=== PATIENT | male | born 1995 | race Caucasian/White ===

== ENCOUNTER 2017-03-18 10:35 | Emergency (ER) | payer SELFPAY ==
[2017-03-18 11:04] LABS: APPEARANCE HAZY (CLEAR); BILIRUBIN NEGATIVE (NEGATIVE); COLOR YELLOW (YELLOW); GLUCOSE NEGATIVE (NEGATIVE); KETONE NEGATIVE (NEGATIVE); LEUKOCYTE ESTERASE TRACE (NEGATIVE); NITRITE NEGATIVE (NEGATIVE); PROTEIN TRACE mg/dL (NEGATIVE); SPECIFIC GRAVITY 1.025 (1.005-1.020); UROBILINOGEN NORMAL (NORMAL)
[2017-03-18 11:06] LABS: BACTERIA FEW /hpf (NONE SEEN); EPITHELIAL CELLS 0-5 /hpf (0-5); MUCUS >1+ /lpf (NONE SEEN); RED CELLS - URINE 0-5 /hpf (0-5); SPERMATOZOA PRESENT /hpf (NONE SEEN); WHITE CELLS - URINE 0-5 /hpf (0-5)
== END 2017-03-18 11:57 | disposition home or self-care (01) ==
LOC: D.ER 10:35
PROVIDERS: Emergency Medicine
DX: S39.012A Strain of muscle, fascia and tendon of lower back, initial encounter (principal); X58.XXXA Exposure to other specified factors, initial encounter; Y93.89 Activity, other specified; Y92.029 Unspecified place in mobile home as the place of occurrence of the external cause

== ENCOUNTER 2017-04-14 11:09 | Emergency (ER) | payer SELFPAY | END 2017-04-14 13:37 | disposition home or self-care (01) | LOC: D.ER 11:09 | DX: S93.402A Sprain of unspecified ligament of left ankle, initial encounter (principal); W01.0XXA Fall on same level from slipping, tripping and stumbling without subsequent striking against object, initial encounter; Y93.89 Activity, other specified; Y92.029 Unspecified place in mobile home as the place of occurrence of the external cause; S90.02XA Contusion of left ankle, initial encounter ==

== ENCOUNTER 2017-10-30 15:17 | Emergency (ER) | payer MEDICAID | END 2017-10-30 19:15 | disposition home or self-care (01) | LOC: D.ER 15:17 | DX: S00.93XA Contusion of unspecified part of head, initial encounter (principal); W50.0XXA Accidental hit or strike by another person, initial encounter; Y93.89 Activity, other specified; Y92.019 Unspecified place in single-family (private) house as the place of occurrence of the external cause; R51 Headache ==

== ENCOUNTER 2017-11-01 19:50 | Emergency (ER) | payer MEDICAID | END 2017-11-01 22:16 | disposition home or self-care (01) | LOC: D.ER 19:50 | DX: S93.402A Sprain of unspecified ligament of left ankle, initial encounter (principal); W18.2XXA Fall in (into) shower or empty bathtub, initial encounter; Y93.E1 Activity, personal bathing and showering; Y92.012 Bathroom of single-family (private) house as the place of occurrence of the external cause ==

== ENCOUNTER 2019-01-23 13:58 | Day surgery (SDC) | payer MEDICAID ==
[~2019-01-23] VITALS: Ht 170.2 cm; Wt 62.1 kg
[2019-01-23 15:06] LABS: BASOPHILS 0.1 % (0-2); EOSINOPHILS 0.3 % (0-7); HEMATOCRIT 48.3 % (42.0-54.0); HEMOGLOBIN 16.4 g/dL (13.5-17.5); IMMATURE GRANULOCYTES 0.4 % (0-5); LYMPHOCYTES 19.9 % (15-50); MCV 88.5 fL (80.0-100.0); NEUTROPHILS 76.3 % (40-80); PLATELET COUNT 185 10x3/uL (130-400); RBC 5.46 10x6/uL (4.20-6.10); RDW 12.7 % (11.5-14.5); WBC 10.9 10x3/uL (4.8-10.8)
[2019-01-23 15:23] LABS: ALBUMIN 4.1 g/dL (3.4-5.0); ALKALINE PHOSPHATASE 94 U/L (46-116); ALT (SGPT) 25 U/L (10-68); BILIRUBIN - TOTAL 0.34 mg/dL (0.2-1.3); CALC OSMOLALITY 276 mosm/kg (275-300); CALCIUM 9.4 mg/dL (8.5-10.1); CARBON DIOXIDE 23.3 mmol/L (21.0-32.0); CHLORIDE - SERUM 102 mmol/L (98-107); GLUCOSE 102 mg/dL (74-106); POTASSIUM - SERUM 3.9 mmol/L (3.5-5.1); PROTEIN - SERUM 8.4 g/dL (6.4-8.2); SODIUM 138 mmol/L (136-145); UREA NITROGEN 16 mg/dL (7-18); eGFR NON AFRICAN AMERICAN > 90 mL/min (90-120)
[2019-01-23 15:26] LABS: AMYLASE - SERUM 76 U/L (25-115); LIPASE 84 U/L (73-393); TROPONIN-I < 0.017 ng/mL (0.000-0.060)
--- NOTE | 2019-01-23 17:28 | NUR ---
URINE TO LAB
[2019-01-23 17:41] LABS: APPEARANCE CLEAR (CLEAR); BILIRUBIN NEGATIVE (NEGATIVE); COLOR STRAW (YELLOW); GLUCOSE NEGATIVE (NEGATIVE); KETONE NEGATIVE (NEGATIVE); NITRITE NEGATIVE (NEGATIVE); PROTEIN NEGATIVE (NEGATIVE); UROBILINOGEN NORMAL (NORMAL)
--- NOTE | 2019-01-23 19:47 | NUR ---
CHANGED IV SITE, TO LEFT HAND,20 GAUGE. DC'D IV TO LEFT FOREARM. PT TERESA. WELL. IV ANTIBIOTICS ARE IN.
--- NOTE | 2019-01-23 20:23 | NUR ---
RECEIVED PT TO FLOOR FROM ER VIA WHEELCHAIR. PT C/O RIGHT LOWER ABDOMINAL PAIN 02/01. REVIEWED HOME MEDS AND HISTORY. ASSESSMENT COMPLETE PER FLOW-SHEET. NO OTHER NEEDS. WILL CONTINUE TO MONITOR.
[2019-01-23 20:25] VITALS: BP 101/64
[2019-01-23 23:36] VITALS: BP 101/64; BMI 37.2
[2019-01-24] VITALS (10 sets, daily range): BP systolic 94–123; BP diastolic 53–73; Ht 170.2 cm; Wt 62.1 kg
[2019-01-24 06:44] LABS: BASOPHILS 0.1 % (0-2); EOSINOPHILS 0.6 % (0-7); HEMATOCRIT 41.2 % (42.0-54.0); HEMOGLOBIN 13.9 g/dL (13.5-17.5); IMMATURE GRANULOCYTES 0.1 % (0-5); LYMPHOCYTES 36.5 % (15-50); MCH 29.8 pg (26.0-34.0); MCHC 33.7 g/dL (31.0-37.0); MCV 88.2 fL (80.0-100.0); MEAN PLATELET VOLUME 9.2 fL (7.4-10.4); NEUTROPHILS 56.7 % (40-80); RBC 4.67 10x6/uL (4.20-6.10); RDW 12.8 % (11.5-14.5)
[2019-01-24 06:54] LABS: ALBUMIN 3.1 g/dL (3.4-5.0); ALKALINE PHOSPHATASE 67 U/L (46-116); ALT (SGPT) 18 U/L (10-68); BILIRUBIN - TOTAL 0.48 mg/dL (0.2-1.3); CALC OSMOLALITY 275 mosm/kg (275-300); CALCIUM 8.6 mg/dL (8.5-10.1); CARBON DIOXIDE 25.3 mmol/L (21.0-32.0); CHLORIDE - SERUM 104 mmol/L (98-107); GLUCOSE 90 mg/dL (74-106); POTASSIUM - SERUM 3.8 mmol/L (3.5-5.1); SODIUM 138 mmol/L (136-145); UREA NITROGEN 13 mg/dL (7-18); eGFR NON AFRICAN AMERICAN > 90 mL/min (90-120)
[2019-01-24 06:57] LABS: PLATELET COUNT 235 10x3/uL (130-400); WBC 7.7 10x3/uL (4.8-10.8)
--- NOTE | 2019-01-24 07:25 | NUR ---
LYING IN BED SLEEPING,AWAKENS INT. AT BEDSIDE. NPO FOR PROCEDURE TODAY
--- NOTE | 2019-01-24 08:15 | NUR ---
HEPI CLENS SHOWER ATTEMPTED BY GUMARO SANCHEZ.PT REFUSED TO GET ANOTHER HEPI CLENS SHOWER.
--- NOTE | 2019-01-24 11:21 | NUR ---
TO OR VIA BED
[2019-01-24] MEDS ORDERED: HYDROCODON-ACE1 EAC7 PO (13:57)
--- NOTE | 2019-01-24 14:15 | NUR ---
JACQUES DC INTACT AT END OF THE CASE. 300CC OUT
--- NOTE | 2019-01-24 15:06 | NUR ---
BACK FROM PACU VIA BED. LAP SITES X2 HAS MINIMAL PINK DRAINAGE. PAIN CONTROLLED.SATS 97% ON 2 LITERS PER NASAL CANULA. ICE CHIPS PROVIDED.MONITOR FOR NEEDS.CALL LIGHT IN REACH
--- NOTE | 2019-01-24 15:46 | NUR ---
STARTING TO BE MORE AWAKE.REMAIS WITHOUT DISTRESS.
--- NOTE | 2019-01-24 17:58 | NUR ---
TOLERATED REG DINNER TRAY WITHOUT NAUSEA. HAS VOIDED 500CC IN URINAL. IV DCD WITH CATH TIP INTACT.DISCHARGE INSTRUCTIONS,STATES UNDERSTANDING. PT REFUSES WHEELCHAIR, STATES HE WOULD RATHER WALK.
== END 2019-01-24 17:59 | disposition home or self-care (01) ==
LOC: OBSVTIME → D.ER 13:58 → D.OPS 13:58 → D.MS 18:43 → D.ER 18:43 → D.MS 18:43 → OBSVTIME 18:44 → D.ER 19:28 → EDSTATUS 01-24 11:30 → D.MS 01-24 17:59 → D.OPS 01-24 17:59
PROVIDERS: Family Medicine; ATTEND Surgery
DX: K35.30 Acute appendicitis with localized peritonitis, without perforation or gangrene (principal)